=== PATIENT | male | born 1945 | race Hispanic/Latino ===

== ENCOUNTER 2021-04-03 12:15 | Outpatient (CLI) | payer MEDICARE | END 2021-04-03 12:16 | disposition home or self-care (01) | LOC: EDBD 12:15 → BICCT 12:15 | PROVIDERS: ATTEND Internal Medicine Pulmonary Disease | DX: R91.8 Other nonspecific abnormal finding of lung field (principal); R91.1 Solitary pulmonary nodule | CPT/HCPCS: 71260; 82565 ==

== ENCOUNTER 2021-08-23 07:13 | Outpatient (CLI) | payer MEDICARE | END 2021-08-23 07:14 | disposition home or self-care (01) | LOC: CT 07:13 | PROVIDERS: ATTEND Internal Medicine Pulmonary Disease | DX: R91.1 Solitary pulmonary nodule (principal); K76.0 Fatty (change of) liver, not elsewhere classified; I73.9 Peripheral vascular disease, unspecified; I25.10 Atherosclerotic heart disease of native coronary artery without angina pectoris | CPT/HCPCS: 71260 ==

== ENCOUNTER 2022-03-27 11:47 | Outpatient (CLI) | payer OTHER | END 2022-03-27 11:48 | disposition home or self-care (01) | LOC: BICCT 11:47 | PROVIDERS: ATTEND Internal Medicine Pulmonary Disease | DX: R91.8 Other nonspecific abnormal finding of lung field (principal) | CPT/HCPCS: 71250 ==

== ENCOUNTER 2023-04-25 13:09 | Emergency (ER) | payer OTHER | END 2023-04-25 15:47 | disposition home or self-care (01) | LOC: ERS 13:09 | DX: M54.32 Sciatica, left side (principal); M25.552 Pain in left hip; I10 Essential (primary) hypertension ==

== ENCOUNTER 2023-05-13 19:01 | Emergency (ER) | payer OTHER | END 2023-05-13 19:16 | disposition home or self-care (01) | LOC: ERS 19:01 | DX: K04.7 Periapical abscess without sinus (principal) | CPT/HCPCS: 99282 ==

== ENCOUNTER 2023-08-21 13:02 | Outpatient (CLI) | payer OTHER | END 2023-08-21 13:03 | disposition home or self-care (01) | LOC: BICCT 13:02 | PROVIDERS: ATTEND Internal Medicine | DX: R91.8 Other nonspecific abnormal finding of lung field (principal); M85.9 Disorder of bone density and structure, unspecified | CPT/HCPCS: 71250 ==

== ENCOUNTER 2024-04-19 13:37 | Outpatient (CLI) | payer OTHER ==
[~2024-04-19 13:37] MED LIST: Iopamidol 370 76% 100 ML VIAL ONE
== END 2024-04-19 13:38 | disposition home or self-care (01) ==
LOC: BICCT 13:37
PROVIDERS: ATTEND Surgery
DX: I72.0 Aneurysm of carotid artery (principal)
CPT/HCPCS: 36415; 70496; 82565; Q9967

== ENCOUNTER 2025-04-11 07:08 | Outpatient (CLI) | payer OTHER | END 2025-04-11 07:09 | disposition home or self-care (01) | LOC: CT 07:08 | PROVIDERS: ATTEND Internal Medicine | DX: R91.1 Solitary pulmonary nodule (principal) | CPT/HCPCS: 71250 ==